=== PATIENT | male | born 1985 | race Caucasian/White ===

== ENCOUNTER 2022-01-07 11:17 | Emergency (ER) | payer OTHER ==
[~2022-01-07] VITALS: Ht 167.6 cm; Wt 78.6 kg
[2022-01-07 11:34] VITALS: BP 128/83
--- NOTE | 2022-01-07 11:36 | NUR ---
SENT TO LOBBY TO WAIT
--- NOTE | 2022-01-07 12:22 | NUR ---
36 Y.O M C/O L RIB PAIN AFTER FALLING IN THE TRENCH AT WORK X 5DAYS. 9/10 PAIN WITH MOVEMENT AND COUGH. PT STATED HE TRIPPED AT WORK AND FELL DOWN IN A TRENCH. HIS BOSS FORCED HIM TO COME TO THE ED. A&OX4, SKIN INTACT, VITALS WNL, NO SIGNS OF RESPIRATORY DISTRESS AT THIS TIME AND STEADY GAIT. [facility]
[2022-01-07] MEDS ORDERED: ACET-10509 PO (12:40)
[2022-01-07] MEDS ORDERED: IBUP-2213 PO (12:40)
[2022-01-07] MEDS ORDERED: LID5T TP (12:40)
--- NOTE | 2022-01-07 13:05 | NUR ---
CALLED PATIENT FOR D/C PAPERWORK; NO ANSWER LOBBY, OUTSIDE ER LOBBY.
--- NOTE | 2022-01-07 13:10 | NUR ---
NO ANSEWR IN LOBBY; OUTSIDE ER LOBBY.
--- NOTE | 2022-01-07 13:20 | NUR ---
Patient left without discharge paperwork. Signature page dual signed by RN.
== END 2022-01-07 13:20 | disposition home or self-care (01) ==
LOC: MED 11:17
DX: R07.89 Other chest pain (principal); Z79.899 Other long term (current) drug therapy; W17.89XA Other fall from one level to another, initial encounter; Y93.89 Activity, other specified; Y92.89 Other specified places as the place of occurrence of the external cause; Y99.8 Other external cause status
CPT/HCPCS: 71046; 99283